=== PATIENT | female | born 2005 | race Caucasian/White ===

== ENCOUNTER 2024-03-02 10:36 | Emergency (ER) | payer OTHER, SELFPAY ==
[2024-03-02 11:11] VITALS: BP 116/81; PULSE 107; RESP 16; TEMP 36.5; O2SAT 98
[2024-03-02 11:41] LABS: EDCOVIDSCREEN Positive (Negative); EDINFLUASCREEN Negative (Negative); EDINFLUBSCREEN Negative (Negative)
--- NOTE | 2024-03-02 11:41 | ED_ITS ---
HPI - URI/Sore Throat General Chief Complaint: Upper Respiratory Infection Stated Complaint: Sinus Infection Symptoms Time Seen by Provider: 03/02/24 11:36 Source: patient and RN notes reviewed Mode of arrival: ambulatory Limitations: no limitations History of Present Illness HPI Narrative: Patient presents today with a 4 day history of cough, congestion, sinus pressure, headache, rhinorrhea. Denies fever, shortness of breath. She has tried ibuprofen and cold medication without relief and is currently pain-free. Related Data Home Medications ?Medication ?Instructions ?Recorded ?Confirmed ?Last Taken ?Type control implant 03/02/24 Unknown History Allergies Allergy/AdvReac Type Severity Reaction Status Date / Time No Known Allergies Allergy Verified 03/02/24 10:58 Review of Systems Review of Systems: CONSTITUTIONAL: Denies body aches, fever, chills, or sweats. EYES: Denies visual changes, redness, or discharge. ENT: Denies sore throat, or otalgia.+ rhinorrhea, congestion CARDIOVASCULAR: Denies chest pain, palpitations, or edema. RESPIRATORY: Denies dyspnea.+ cough GASTROINTESTINAL: Denies abdominal pain, nausea, vomiting, or diarrhea. GENITOURINARY: Denies dysuria or hematuria. SKIN: Denies rash, itching, or wounds. MUSCULOSKELETAL: Denies back pain, joint pain, or myalgia. NEUROLOGIC: Denies numbness, tingling, or weakness.+ headache PSYCH: Denies depression or anxiety. PMFSH Comments At time of signature, I have reviewed and agree with nursing past medical, surgical, social and family history unless otherwise noted. Please see nursing chart for further information. There is no relevant family history pertinent to the presenting complaint Exam Narrative: GENERAL: Ill-appearing, well-nourished, and in no acute distress. HEAD: Normocephalic, atraumatic. EYES: EOMI. No redness or drainage. Conjunctivae normal. ENT: Mucous membranes pink and moist. Nares congested with rhinorrhea. TMs normal bilaterally. Throat normal. Uvula midline. NECK: Normal AROM. Supple. No lymphadenopathy. CHEST: No respiratory distress. Clear to auscultation. HEART: Regular rhythm. Tachycardia. No murmur appreciated. EXTREMITIES: Normal range of motion. No edema. SKIN: Warm, dry, no rash. Capillary refill normal. Normal skin turgor. NEURO: No focal deficits. Alert and oriented x3. Gait steady. PSYCH: Normal affect. No signs of depression or anxiety. Course Course Level of Care: Express Care Visit Vital Signs Vital signs: Vital Signs Temperature 97.7 F 03/02/24 11:11 Pulse Rate 107 H 03/02/24 11:11 Respiratory Rate 16 03/02/24 11:11 Blood Pressure 116/81 03/02/24 11:11 Pulse Oximetry 98 03/02/24 11:11 Oxygen Delivery Room Air 03/02/24 11:11 Temperature 97.7 F 03/02/24 11:11 Pulse Rate 107 H 03/02/24 11:11 Respiratory Rate 16 03/02/24 11:11 Blood Pressure 116/81 03/02/24 11:11 Pulse Oximetry 98 03/02/24 11:11 Oxygen Delivery Room Air 03/02/24 11:30 Reviewed MDM - URI/Sore Throat MDM Narrative Medical decision making narrative: Influenza negative. COVID positive. Discussed [id number] medication use and duration of illness. Anticipatory guidance given. Differential Diagnosis Differential diagnosis: Likely upper respiratory infection, sinusitis, viral infection, influenza and other (COVID) Lab Data Attestation: I reviewed the patient's lab results. Labs: Lab Results 03/02/24 Range/Units 11:34 POC Influenza A Ag Negative (Negative) POC Influenza B Ag Negative (Negative) POC SARS CoV-2 Ag Positive (Negative) Critical Care Time Critical Care Time Critical Care Time: No Discharge Plan Discharge Clinical Impression: COVID-19 Patient Disposition: Home, Self-Care Condition: Stable Instructions: COVID-19 (Coronavirus Disease 2019) (ED) Additional Instructions: You have tested positive for COVID-19 today. Please continue [id number] medication for symptoms such as Sudafed, Flonase, ibuprofen or Tylenol. Rest and stay hydrated. Follow-up with your PCP in 1 week if symptoms are not improving, or sooner if symptoms worsen. If you develop worsening symptoms such as shortness of breath, chest pain, please go to the ER for further evaluation and treatment. Your blood pressure was elevated above 120/80 today at Urgent Care. This puts you above the threshold for follow up. Please schedule a followup visit with your personal physician as soon as possible, for further evaluation and treatment. Even blood pressure exceeding 120/80 may indicate pre-hypertension. Patient Language: Divehi Prescriptions: No Action control implant Follow-up/Referrals: PHYSICIAN,SPIRAL WINDING MACHINE HELPER [Primary Care Provider] - Time of Disposition: 11:45
== END 2024-03-02 11:53 | disposition home or self-care (01) ==
PROVIDERS: Emergency Provider Nurse Practitioner
DX: U07.1 COVID-19 (principal)
CPT/HCPCS: 87426; 87804; 99202; G0463